=== PATIENT | male | born 1945 | race Caucasian/White ===

== ENCOUNTER 2020-05-16 15:54 | Inpatient (IN) ==
[2020-05-16 17:50] LABS: CKMB % 8.1 %
[2020-05-16 17:53] LABS: Troponin I 8.41 NG/ML (0.00-0.045)
[2020-05-16] MEDS ORDERED: GLUCAGON 1 MG VIAL IM PRN (19:15)
[2020-05-16] MEDS ORDERED: DEXTROSE 50% 25 GM/50 ML VIAL IV PRN (19:15)
[2020-05-16] MEDS ORDERED: ACETAMINOPHEN 325 MG TABLET PO PRN (19:15)
[2020-05-16] MEDS ORDERED: ONDANSETRON 4 MG/2 ML VIAL IV PRN (19:15)
[2020-05-16] MEDS ORDERED: ASPIRIN CHEW 81 MG TABLET PO ONE (19:27)
[2020-05-16] MEDS ORDERED: ENOXAPARIN 60 MG/0.6 ML SYRINGE SUBCUT STA (19:28)
[2020-05-16] MEDS ORDERED: ALBUTEROL/IPRATROPIUM 3 ML NEB RESP TX STA (19:33)
[2020-05-16] MEDS ORDERED: ATORVASTATIN 20 MG TABLET PO SCH (21:00)
[2020-05-16] MEDS: INSULIN REGULAR 100 UNIT/ML SUBCUT SCH (21:06)
[2020-05-16] MEDS: SODIUM CHLORIDE 0.9% 1,000 ML IV SCH ×2 (23:15→23:17)
[2020-05-16] MEDS: carvediloL 3.125 MG TABLET PO SCH (23:16)
[2020-05-17] MEDS: ALBUTEROL/IPRATROPIUM 3 ML NEB RESP TX SCH ×4 (00:40→21:44)
[2020-05-17 00:56] LABS: Basophils % 0.1 % (0.0-0.8); Hematocrit 42.8 VOL% (42.0-52.0); Hemoglobin 14.1 GM/DL (14.0-18.0); Immature Granulocytes % 1.5 %; Immature Granulocytes Absolute 0.32 #; Lymphocytes # 1.1 10*3/uL (1.4-4.0); Lymphocytes % 5.3 % (21.2-54.2); Mean Corpuscular HGB Conc 32.9 GM/DL (32-36); Mean Corpuscular Volume 97.7 FL (87-102); Mean Platelet Volume 9.6 FL (9.6-12.0); Monocytes % 4.9 % (1.7-12.7); Neutrophils % 88.2 % (38.7-73.9); Platelet Count 199 T/CUMM (130-400); Red Blood Count 4.38 MC/CUMM (3.8-5.5); Red Cell Distribution Width 13.3 % (9.3-17.3); White Blood Count 20.9 T/CUMM (4-12)
[2020-05-17 01:21] LABS: Band Neutrophils 1 % (0-10); Lymphocytes 11 % (20-55); Platelet Estimate Normal; Segmented Neutrophils 84 % (50-85); Total Cells Counted 100
[2020-05-17 01:30] LABS: Albumin 3.5 G/DL (3.4-5.0); Bilirubin,Total 0.7 MG/DL (0.2-1.0); Calcium 9.1 MG/DL (8.5-10.1); Osmolality,Calculated 296.1 MOS/KG (273-304); Total Protein 6.7 G/DL (6.4-8.3)
[2020-05-17] MEDS: SODIUM CHLORIDE 0.9% 1,000 ML IV SCH ×2 (04:23→14:35)
[2020-05-17 08:56] LABS: ABG Base Excess -2.4 MMOL/L (-2.5-2.5); ABG HCO3 22.3 MMOL/L (20-26); ABG Oxygen Saturation 92.1 % (95-100); ABG PO2 75.1 MM HG (80-95); ABG TCO2 25.7 MMOL/L (23-27)
[2020-05-17 08:57] LABS: ABG PCO2 74.4 MM HG (35-48); ABG PH 7.194 (7.35-7.45)
[2020-05-17] MEDS ORDERED: PNEUMOCOCCAL VACCINE (13 VALENT) 0.5 ML SYRINGE IM ONE (09:00)
[2020-05-17] MEDS ORDERED: CLOPIDOGREL 75 MG TABLET PO SCH (09:00)
[2020-05-17] MEDS ORDERED: ASPIRIN CHEW 81 MG TABLET PO SCH (09:00)
[2020-05-17] MEDS: INSULIN REGULAR 100 UNIT/ML SUBCUT SCH ×4 (09:51→23:27)
[2020-05-17] MEDS: ATORVASTATIN 20 MG TABLET PO SCH (09:51)
[2020-05-17] MEDS: PANTOPRAZOLE 40 MG TABLET PO SCH (09:51)
[2020-05-17] MEDS: CLOPIDOGREL 75 MG TABLET PO SCH (09:51)
[2020-05-17] MEDS: ASPIRIN EC 81 MG TABLET PO SCH (09:51)
[2020-05-17] MEDS: GLIMEPIRIDE 2 MG TABLET PO SCH (09:51)
[2020-05-17] MEDS: DILTIAZEM CD 180 MG CAPSULE PO SCH (09:52)
[2020-05-17] MEDS: carvediloL 3.125 MG TABLET PO SCH ×2 (09:52→16:45)
[2020-05-17 10:46] LABS: ABG Base Excess -1.2 MMOL/L (-2.5-2.5); ABG Oxygen Saturation 78.8 % (95-100); ABG PCO2 66.2 MM HG (35-48); ABG PH 7.241 (7.35-7.45); ABG PO2 48.3 MM HG (80-95); ABG TCO2 25.3 MMOL/L (23-27)
[2020-05-17] MEDS ORDERED: SODIUM POLYSTYRENE SULFATE 15 GM/60 ML BOTTLE PO ONE (12:18)
[2020-05-17] MEDS: ENOXAPARIN 100 MG/ML SYRINGE SUBCUT SCH (14:20)
[2020-05-18] MEDS: ALBUTEROL/IPRATROPIUM 3 ML NEB RESP TX SCH ×4 (01:22→19:11)
[2020-05-18 06:58] LABS: Calcium 8.9 MG/DL (8.5-10.1); Osmolality,Calculated 298.4 MOS/KG (273-304)
[2020-05-18] MEDS: INSULIN REGULAR 100 UNIT/ML SUBCUT SCH ×4 (07:49→21:52)
[2020-05-18] MEDS: ASPIRIN EC 81 MG TABLET PO SCH (10:47)
[2020-05-18] MEDS: DILTIAZEM CD 180 MG CAPSULE PO SCH (10:47)
[2020-05-18] MEDS: GLIMEPIRIDE 2 MG TABLET PO SCH (10:47)
[2020-05-18] MEDS: CLOPIDOGREL 75 MG TABLET PO SCH (10:47)
[2020-05-18] MEDS: ATORVASTATIN 20 MG TABLET PO SCH (10:47)
[2020-05-18] MEDS: carvediloL 3.125 MG TABLET PO SCH ×2 (10:47→19:24)
[2020-05-18] MEDS: PANTOPRAZOLE 40 MG TABLET PO SCH (10:48)
[2020-05-18] MEDS: SODIUM CHLORIDE 0.9% 1,000 ML IV SCH (10:55)
[2020-05-18] MEDS: MORPHINE 4 MG/1 ML VIAL IV PRN ×2 (11:56→21:32)
[2020-05-18 13:57] LABS: Basophils % 0.1 % (0.0-0.8); Eosinophils % 0.1 % (0.00-10.9); Hematocrit 45.8 VOL% (42.0-52.0); Immature Granulocytes Absolute 0.16 #; Lymphocytes # 1.4 10*3/uL (1.4-4.0); Lymphocytes % 8.1 % (21.2-54.2); Mean Corpuscular HGB Conc 32.8 GM/DL (32-36); Mean Corpuscular Volume 100.2 FL (87-102); Mean Platelet Volume 9.9 FL (9.6-12.0); Monocytes % 6.5 % (1.7-12.7); Neutrophils % 84.2 % (38.7-73.9); Platelet Count 163 T/CUMM (130-400); Red Blood Count 4.57 MC/CUMM (3.8-5.5); Red Cell Distribution Width 13.2 % (9.3-17.3); White Blood Count 16.8 T/CUMM (4-12)
[2020-05-18 14:55] LABS: ABG Base Excess 4.3 MMOL/L (-2.5-2.5); ABG HCO3 28.2 MMOL/L (20-26); ABG Oxygen Saturation 96.6 % (95-100); ABG PH 7.266 (7.35-7.45); ABG PO2 97.8 MM HG (80-95); ABG TCO2 30.6 MMOL/L (23-27)
[2020-05-18 15:02] LABS: ABG PCO2 76.8 MM HG (35-48)
[2020-05-18] MEDS: ENOXAPARIN 100 MG/ML SYRINGE SUBCUT SCH (16:37)
[2020-05-19] MEDS: ALBUTEROL/IPRATROPIUM 3 ML NEB RESP TX SCH ×4 (00:26→20:58)
[2020-05-19] MEDS: SODIUM CHLORIDE 0.9% 1,000 ML IV SCH (05:38)
[2020-05-19] MEDS: INSULIN REGULAR 100 UNIT/ML SUBCUT SCH ×4 (09:01→21:41)
[2020-05-19] MEDS: CLOPIDOGREL 75 MG TABLET PO SCH (09:20)
[2020-05-19] MEDS: carvediloL 3.125 MG TABLET PO SCH (09:21)
[2020-05-19] MEDS: PANTOPRAZOLE 40 MG TABLET PO SCH (09:21)
[2020-05-19] MEDS: GLIMEPIRIDE 2 MG TABLET PO SCH (09:21)
[2020-05-19] MEDS: ATORVASTATIN 20 MG TABLET PO SCH (09:21)
[2020-05-19] MEDS: ASPIRIN EC 81 MG TABLET PO SCH (09:21)
[2020-05-19] MEDS: DILTIAZEM CD 180 MG CAPSULE PO SCH (09:22)
[2020-05-19 13:48] LABS: Basophils % 0.2 % (0.0-0.8); Eosinophils % 0.4 % (0.00-10.9); Hematocrit 45.9 VOL% (42.0-52.0); Hemoglobin 15.1 GM/DL (14.0-18.0); Immature Granulocytes % 1.3 %; Immature Granulocytes Absolute 0.13 #; Lymphocytes # 1.5 10*3/uL (1.4-4.0); Lymphocytes % 14.6 % (21.2-54.2); Mean Corpuscular HGB Conc 32.9 GM/DL (32-36); Mean Corpuscular Volume 97.2 FL (87-102); Mean Platelet Volume 9.4 FL (9.6-12.0); Monocytes % 8.8 % (1.7-12.7); Neutrophils % 74.7 % (38.7-73.9); Platelet Count 152 T/CUMM (130-400); Red Blood Count 4.72 MC/CUMM (3.8-5.5); Red Cell Distribution Width 12.5 % (9.3-17.3); White Blood Count 10.2 T/CUMM (4-12)
[2020-05-19] MEDS: ENOXAPARIN 100 MG/ML SYRINGE SUBCUT SCH (13:57)
[2020-05-19 14:06] LABS: Calcium 8.9 MG/DL (8.5-10.1); Osmolality,Calculated 292.3 MOS/KG (273-304)
[2020-05-19 14:07] LABS: Calcium 8.9 MG/DL (8.5-10.1); Osmolality,Calculated 291.3 MOS/KG (273-304)
[2020-05-19] MEDS: carvediloL 6.25 MG TABLET PO SCH (17:39)
[2020-05-19] MEDS: MORPHINE 4 MG/1 ML VIAL IV PRN (21:37)
[2020-05-20] MEDS: ALBUTEROL/IPRATROPIUM 3 ML NEB RESP TX SCH ×4 (02:15→19:24)
[2020-05-20] MEDS: SODIUM CHLORIDE 0.9% 1,000 ML IV SCH ×2 (03:30→03:31)
[2020-05-20 06:53] LABS: Basophils % 0.2 % (0.0-0.8); Eosinophils # 0.2 10*3/uL (0.0-0.87); Eosinophils % 1.8 % (0.00-10.9); Hematocrit 45.4 VOL% (42.0-52.0); Hemoglobin 15.3 GM/DL (14.0-18.0); Immature Granulocytes % 1.3 %; Immature Granulocytes Absolute 0.13 #; Lymphocytes # 1.7 10*3/uL (1.4-4.0); Lymphocytes % 16.1 % (21.2-54.2); Mean Corpuscular HGB Conc 33.7 GM/DL (32-36); Mean Corpuscular Volume 96.4 FL (87-102); Mean Platelet Volume 9.4 FL (9.6-12.0); Monocytes % 8.5 % (1.7-12.7); Neutrophils % 72.1 % (38.7-73.9); Platelet Count 148 T/CUMM (130-400); Red Blood Count 4.71 MC/CUMM (3.8-5.5); Red Cell Distribution Width 12.4 % (9.3-17.3); White Blood Count 10.3 T/CUMM (4-12)
[2020-05-20 07:17] LABS: Osmolality,Calculated 283.4 MOS/KG (273-304)
[2020-05-20 08:20] LABS: Macrocytosis Slight; Platelet Estimate Adequate
[2020-05-20] MEDS: carvediloL 6.25 MG TABLET PO SCH (10:10)
[2020-05-20] MEDS: ASPIRIN EC 81 MG TABLET PO SCH (10:10)
[2020-05-20] MEDS: GLIMEPIRIDE 2 MG TABLET PO SCH (10:10)
[2020-05-20] MEDS: ATORVASTATIN 20 MG TABLET PO SCH (10:10)
[2020-05-20] MEDS: DILTIAZEM CD 180 MG CAPSULE PO SCH (10:10)
[2020-05-20] MEDS: CLOPIDOGREL 75 MG TABLET PO SCH (10:10)
[2020-05-20] MEDS: PANTOPRAZOLE 40 MG TABLET PO SCH (10:10)
[2020-05-20] MEDS: INSULIN REGULAR 100 UNIT/ML SUBCUT SCH ×4 (11:19→20:55)
[2020-05-20] MEDS ORDERED: POLYETHYLENE GLYCOL POWDER 17 GM PACK PO PRN (12:29)
[2020-05-20] MEDS ORDERED: POLYETHYLENE GLYCOL POWDER 17 GM PACK PO SCH (12:35)
[2020-05-20] MEDS: methylPREDNISolone SOD SUC 40 MG/1 ML VIAL IV SCH (13:50)
[2020-05-20] MEDS: carvediloL 12.5 MG TABLET PO SCH (18:15)
[2020-05-20] MEDS: ENOXAPARIN 100 MG/ML SYRINGE SUBCUT SCH (18:15)
[2020-05-21] MEDS: methylPREDNISolone SOD SUC 40 MG/1 ML VIAL IV SCH ×2 (00:01→12:24)
[2020-05-21] MEDS: ALBUTEROL/IPRATROPIUM 3 ML NEB RESP TX SCH ×4 (00:50→19:31)
[2020-05-21] MEDS: SODIUM CHLORIDE 0.9% 1,000 ML IV SCH ×3 (01:01→23:38)
[2020-05-21] MEDS: MORPHINE 4 MG/1 ML VIAL IV PRN (05:35)
[2020-05-21 06:26] LABS: Basophils % 0.1 % (0.0-0.8); Hematocrit 45.6 VOL% (42.0-52.0); Hemoglobin 15.4 GM/DL (14.0-18.0); Immature Granulocytes % 0.7 %; Immature Granulocytes Absolute 0.07 #; Lymphocytes # 0.8 10*3/uL (1.4-4.0); Lymphocytes % 7.5 % (21.2-54.2); Mean Corpuscular HGB Conc 33.8 GM/DL (32-36); Mean Platelet Volume 9.6 FL (9.6-12.0); Monocytes % 1.6 % (1.7-12.7); Neutrophils % 90.1 % (38.7-73.9); Platelet Count 145 T/CUMM (130-400); Red Cell Distribution Width 12.1 % (9.3-17.3); White Blood Count 10.3 T/CUMM (4-12)
[2020-05-21 06:34] LABS: Calcium 9.3 MG/DL (8.5-10.1); Osmolality,Calculated 280.7 MOS/KG (273-304)
[2020-05-21] MEDS ORDERED: MAGNESIUM SULF RIDER 2 GM in PREMIX 1 EACH IV PRN (07:18)
[2020-05-21] MEDS ORDERED: POTASSIUM CHLORIDE RIDER 10 MEQ in PREMIX 1 EACH IV PRN (07:18)
[2020-05-21] MEDS ORDERED: NITROGLYCERIN SL 0.4 MG TABLET SL PRN (07:50)
[2020-05-21] MEDS: INSULIN REGULAR 100 UNIT/ML SUBCUT SCH ×4 (08:10→23:50)
[2020-05-21] MEDS: CLOPIDOGREL 75 MG TABLET PO SCH (08:50)
[2020-05-21] MEDS: GLIMEPIRIDE 2 MG TABLET PO SCH (08:50)
[2020-05-21] MEDS: ASPIRIN EC 81 MG TABLET PO SCH (08:50)
[2020-05-21] MEDS: PANTOPRAZOLE 40 MG TABLET PO SCH (08:50)
[2020-05-21] MEDS: carvediloL 12.5 MG TABLET PO SCH ×2 (08:50→16:39)
[2020-05-21] MEDS: hydrALAZINE 25 MG TABLET PO SCH ×3 (08:50→21:23)
[2020-05-21] MEDS: ATORVASTATIN 20 MG TABLET PO SCH (08:50)
[2020-05-21] MEDS: DILTIAZEM CD 180 MG CAPSULE PO SCH (08:50)
[2020-05-21] MEDS ORDERED: DIAZEPAM 5 MG TABLET PO ONE (13:30)
[2020-05-21] MEDS ORDERED: diphenhydrAMINE CAP 25 MG CAPSULE PO ONE (13:30)
[2020-05-21] MEDS ORDERED: LIDOCAINE 1% 20 ML VIAL ONE (13:40)
[2020-05-21] MEDS: ENOXAPARIN 100 MG/ML SYRINGE SUBCUT SCH (15:40)
[2020-05-22] MEDS: methylPREDNISolone SOD SUC 40 MG/1 ML VIAL IV SCH ×2 (01:16→13:21)
[2020-05-22] MEDS: ALBUTEROL/IPRATROPIUM 3 ML NEB RESP TX SCH ×2 (02:19→07:45)
[2020-05-22 07:05] LABS: Basophils % 0.2 % (0.0-0.8); Immature Granulocytes % 0.8 %; Immature Granulocytes Absolute 0.19 #; Lymphocytes # 1.2 10*3/uL (1.4-4.0); Lymphocytes % 5.1 % (21.2-54.2); Mean Corpuscular HGB Conc 34.1 GM/DL (32-36); Mean Corpuscular Volume 93.6 FL (87-102); Mean Platelet Volume 9.6 FL (9.6-12.0); Monocytes % 1.6 % (1.7-12.7); Neutrophils % 92.3 % (38.7-73.9); Platelet Count 169 T/CUMM (130-400); Red Cell Distribution Width 12.4 % (9.3-17.3); White Blood Count 22.4 T/CUMM (4-12)
[2020-05-22 07:26] LABS: Band Neutrophils 7 % (0-10); Lymphocytes 5 % (20-55); Platelet Estimate Normal; Segmented Neutrophils 87 % (50-85); Total Cells Counted 100
[2020-05-22 07:27] LABS: Anisocytosis Slight; Macrocytosis Slight
[2020-05-22 07:50] LABS: Albumin 3.1 G/DL (3.4-5.0); Bilirubin,Total 0.5 MG/DL (0.2-1.0); Calcium 9.3 MG/DL (8.5-10.1); Osmolality,Calculated 284.7 MOS/KG (273-304); Total Protein 6.3 G/DL (6.4-8.3)
[2020-05-22] MEDS: ATORVASTATIN 20 MG TABLET PO SCH (08:35)
[2020-05-22] MEDS: ASPIRIN EC 81 MG TABLET PO SCH (08:35)
[2020-05-22] MEDS: PANTOPRAZOLE 40 MG TABLET PO SCH (08:35)
[2020-05-22] MEDS: hydrALAZINE 25 MG TABLET PO SCH (08:36)
[2020-05-22] MEDS: GLIMEPIRIDE 2 MG TABLET PO SCH (08:36)
[2020-05-22] MEDS: carvediloL 12.5 MG TABLET PO SCH (08:36)
[2020-05-22] MEDS: CLOPIDOGREL 75 MG TABLET PO SCH (08:37)
[2020-05-22] MEDS: DILTIAZEM CD 180 MG CAPSULE PO SCH (08:39)
[2020-05-22] MEDS: INSULIN REGULAR 100 UNIT/ML SUBCUT SCH ×2 (08:47→11:10)
[2020-05-22] MEDS ORDERED: ATORVASTATIN 40 MG TABLET PO SCH (10:03)
[2020-05-22 11:23] VITALS: BP 139/74
== END 2020-05-22 13:18 | disposition home or self-care (01) | DRG 280 ==
LOC: N.ED 15:54 → N.EDINP 19:15 → SUATTDRO 19:15 → N.TELES 21:28
PROVIDERS: ADMIT Internal Medicine; ATTEND Internal Medicine